=== PATIENT | male | born 1940 | race Caucasian/White ===

== ENCOUNTER 2017-06-02 23:52 | Emergency (ER) | payer OTHER ==
[2017-06-03] VITALS: BP 124/74
[2017-06-03] MEDS ORDERED: Acetaminophen TAB* 325 MG PO ONE (00:06)
--- NOTE | 2017-06-03 00:28 | ED ---
Upper Extremity Pain - HPI Summary HPI Summary: 76M presents with right shoulder pain today. He states he tripped on his feet and landed on his right shoulder. He states he can not lift his arm above 90 degrees. He was unable to get up afterwards due to needing his right shoulder and had to call an ambulance for a lift assist. He admits to some numbness into his hand. He denies any head injury or neck pain. He denies any LOC. He denies any nausea or vomiting or hip pain. He is right handed. He denies any other injury. - History of Current Complaint Chief Complaint: [place] Stated Complaint: RT SHOULDER PAIN Time Seen by Provider: 06/03/17 00:02 - Allergies/Home Medications Allergies/Adverse Reactions: Allergies Allergy/AdvReac Type Severity Reaction Status Date / Time No Known Allergies Allergy Verified 06/30/13 11:24 PMH/Surg Hx/FS Hx/Imm Hx Endocrine/Hematology History: Reports: Hx Diabetes Denies: Hx Anemia Cardiovascular History: Reports: Hx Coronary Artery Disease, Hx Hypercholesterolemia, Hx Hypertension, Other Cardiovascular Problems/Disorders - IRREGULAR HR Respiratory History: Denies: Other Respiratory Problems/Disorders GI History: Denies: Hx Jaundice, Other GI Disorders Musculoskeletal History: Reports: Hx Arthritis - RIGHT HIP, Other Musculoskeletal History - DROP FOOT Sensory History: Reports: Hx Contacts or 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 HERNIA REPAIR AGE 17. [place] [facility] [place] BILAT-RIGHT EYE INFECTION-3 SURGERIES [id number] Hx Anesthesia Reactions: No Infectious Disease History: No Infectious Disease History: Denies: Hx Clostridium Difficile, Hx Hepatitis, Hx Human Immunodeficiency Virus (HIV), Hx of Known/Suspected MRSA, Hx Shingles, Hx Tuberculosis, Hx Known/ Suspected VRE, Hx Known/Suspected VRSA, Traveled Outside the [place] in Last 30 Days - Family History Known Family History: Positive: Cardiac Disease - Social History Substance Use Type: Reports: None Review of Systems Negative: Fever Negative: Chest Pain Negative: Shortness Of Breath Positive: Myalgia - right shoulder pain All Other Systems Reviewed And Are Negative: Yes Physical Exam Triage Information Reviewed: Yes Vital Signs On Initial Exam: Initial Vitals Temp Pulse Resp BP Pulse Ox 97.9 F 76 18 124/74 95 06/02/17 23:56 06/02/17 23:56 06/02/17 23:56 06/02/17 23:56 06/02/17 23:56 Vital Signs Reviewed: Yes Appearance: Positive: Well-Appearing Skin: Positive: Warm, Dry Head/Face: Positive: Normal Head/Face Inspection Eyes: Positive: Normal, Conjunctiva Clear Respiratory/Lung Sounds: Positive: Clear to Auscultation, Breath Sounds Present Cardiovascular: Positive: Normal, RRR Musculoskeletal: Positive: Other - tenderness over right shoulder on lateral aspect, good pulses, capillary refill< 2 secs, 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 - Radiology shoulder Xray Interpretation: No Acute Changes - no fracture seen Radiology Interpretation Completed By: ED Physician Course/Dx - Course Course Of Treatment: 76M presents with right shoulder pain today. He states he tripped on his feet and landed on his right shoulder. He states he can not lift his arm above 90 degrees. He was unable to get up afterwards due to needing his right shoulder and had to call an ambulance for a lift assist. He admits to some numbness into his hand. He denies any head injury or neck pain. He denies any LOC. neurovascular intact, tender over right shoulder no step off deformity noted. xray shows no fracture as read by me. told to use RICE and follow up with primary. patient understands and agrees with plan. - Diagnoses Differential Diagnosis/HQI/PQRI: Positive: Fracture (Closed), Strain, Sprain Provider Diagnoses: Right shoulder pain Discharge - Discharge Plan Condition: Good Disposition: HOME Patient Education Materials: Shoulder Pain (ED) Referrals: Omaira Collins MD [Primary Care Provider] - Additional Instructions: Take Tylenol every 6 hours as needed for pain Ice for next couple days then switch to heat Can rest for couple days day and then need to do range of motion activities for shoulder Follow up with primary care physician within 5 days Return to ED if develop any new or worsening symptoms
--- NOTE | 2017-06-03 07:55 | RAD ---
INDICATION: Right shoulder pain after a fall COMPARISON: None. TECHNIQUE: 6 views of the right shoulder were obtained. FINDINGS: Overlying the superior lateral margin of the right humeral head there is to say linear calcifications. Degenerative changes of the right shoulder include narrowing of the glenohumeral joint and osteophyte formation along the inferior margin of the joint space. Otherwise the adequately corticated bones are in normal alignment. No fracture, dislocation or focal bony abnormality is seen. IMPRESSION: DEGENERATIVE CHANGES OF THE RIGHT SHOULDER INCLUDE APPEARANCE OF CALCIFIC TENDINITIS INVOLVING THE SUPRASPINATUS TENDON. NO ACUTE FRACTURE OR DISLOCATION IS IDENTIFIED. If the patient's symptoms persist, follow-up imaging is recommended.
== END 2017-06-03 01:30 | disposition home or self-care (01) ==
LOC: ED 23:52
DX: M25.511 Pain in right shoulder (principal)
CPT/HCPCS: 99282; A9270-GY